=== PATIENT | male | born 1985 | race Caucasian/White ===

== ENCOUNTER 2017-07-21 14:28 | Inpatient (IN) ==
[2017-07-21] MEDS ORDERED: Aminoglycoside Consult 1 EACH MC ONE (16:25)
[2017-07-21] MEDS ORDERED: *HR* Promethazine 25 MG/ML VIAL IVP PRN (17:28)
[2017-07-21] MEDS ORDERED: *HR* LORazepam 2 MG/ML VIAL IVP PRN ×3 (17:28)
[2017-07-21] MEDS: Thiamine (B-1) 100 MG, Folic Acid 1 MG, MVI, adult with vitamin K 10 ML in 0.9 % Sodi... IVPB SCH (18:24)
[2017-07-21] MEDS ORDERED: Naloxone 0.4 MG/ML INJ IVP PRN (20:23)
[2017-07-21] MEDS: Acetaminophen 325 MG TABLET PO PRN (20:41)
[2017-07-21] MEDS: Nicotine 21 MG PATCH.TD24 TD SCH (20:41)
[2017-07-21] MEDS: 0.9 % Sodium Chloride 1,000 ML IVC SCH (20:41)
--- NOTE | 2017-07-21 20:48 | Internal Med History&Physical ---
<Trinh Rachel M - Last Filed: 07/21/17 20:42> Date of Encounter: 07/21/17 Time of Encounter: 20:42 Assessment and Plan (1) Alcohol withdrawal Current visit: Yes Status: Acute Patient reports he drinks 18 beers daily for at least 2 years, and stopped cold turkey on Wednesday. He reports he was "tired of being drunk all the time". He started having nausea, vomiting and abdominal pain last evening. He denies any seizures. [facility] protocol for alcohol withdrawal seizure and aspiration precautions social work consult Banana bag ordered plus IV fluids 0.9NS at 100mL/hr Qualifiers: Complication of substance-induced condition: uncomplicated Qualified Code(s ): F10.230 - Alcohol dependence with withdrawal, uncomplicated (2) Sepsis Current visit: Yes Status: Acute Patient with elevated WBC, fever of 102 and tachycardia with HR in the 90s. CXR showed no active pulmonary disease and UA was not definitive for infection. Patient was given Rocephin at [place]. Lactate was normal at 0.8. Given history of heavy alcohol use and recent vomiting, concern for aspiration pneumonia. Will broaden antibiotics to Vanc and Zosyn. Blood cultures, urine cultures and sputum cultures ordered Patient given 2L fluid boluses (30mL/kg = 2250) Tylenol PRN for fever. Qualifiers: Sepsis type: sepsis due to unspecified organism Qualified Code(s): A41.9 - Sepsis, unspecified organism (3) Nausea and vomiting Current visit: Yes Status: Acute Patient reports nausea, vomiting and abdominal pain since last night. Likely secondary to alcohol withdrawal as patient was a heavy drinker and stopped on Wednesday. Zofran PRN for nausea. IV fluids given: 2L in [place], continue with 0.9NS at 100mL/hr Qualifiers: Vomiting type: cyclical vomiting Vomiting Intractability: non-intractable Qualified Code(s): G43.A0 - Cyclical vomiting, not intractable (4) Smoker Current visit: Yes Status: Acute Patient reports he smokes and chews tobacco. encouraged smoking cessation. Nicotine patch and smoking cessation education ordered. (5) DVT prophylaxis Current visit: Yes Status: Acute Internal Medicine - H&P: HPI Chief complaint: chest pain Admitted From: Emergency Dept History of present illness: Mr. Barron is a 32 year old male with no significant medical history who presented to the emergency room at [facility] with nausea, vomiting, chills and sweats. Patient reports that he has been a heavy drinker, drinking 18 beers a day for several years and decided to quit on Wednesday. His symptoms of nausea, vomiting started last evening and worsened until today. Patient also reports chills, sweats, and body aches. He reports he has not had much urine output. He reports headache. He denies any lightheadedness, chest pain, palpitations, shortness of breath. Evaluation in the emergency room at [facility] revealed elevated white blood cell count of 23.0. UA was not definitive for infection. Lactate was normal at 0.8. Lipase is normal at 23. Chest x-ray showed no active pulmonary disease. On exam, patient alert and oriented, in no acute distress. Mildly tachycardic with heart rate in the 90s, he is febrile with temperature of 102. Heart has regular rate and rhythm, lungs are clear bilaterally to auscultation. Abdomen is soft, nontender, with positive bowel sounds, no peripheral edema. Past Med Surg Social Fam HX - Past Medical History Medical history: no medical history Psychiatric history: no psych history - Past Surgical History Surgical History: sinus surgery, other - Social History Smoking Status: Current every day smoker Packs per day: 1 Smokeless Tobacco Status: No Alcohol use: heavy Drug use: none - Family History Mother Living Status: Still Living Hx Family Cardiac Disorders: Yes Hx Family Endocrine Disorder: Yes (diabetes) Father Living Status: Still Living Hx Family Cardiac Disorders: Yes Internal Medicine - H&P: Meds No Known Home Drugs 07/21/17 [History] 3 Allergy/AdvReac Type Severity Reaction Status Date / Time No Known Allergies Allergy Verified 07/21/17 10:45 All Systems PM: A 10-system review of systems was performed and is negative for pertinent findings except as documented above in the HPI. - Constitutional Constitutional: chills, fever(s), malaise, no night sweats - EENT Eyes: no change in vision, no discharge, no pain, no photophobia Ears: no ear discharge, no ear pain, no tinnitus Nose, mouth and throat: no dysphagia, no nasal discharge, no neck pain, no sore throat - Cardiovascular Cardiovascular ROS IM: diaphoresis, no chest pain, no dyspnea, no lightheadedness, no palpitations, no syncope - Respiratory Respiratory: no cough, no dyspnea, no wheezing, no excessive phlegm production - Gastrointestinal Gastrointestinal: abdominal pain, nausea, vomiting, no diarrhea, no hematemesis , no hematochezia, no melena - Musculoskeletal Musculoskeletal ROS IM: no numbness, no tingling - Integumentary Integumentary IM: no rash, no unusual bruising - Neurological Neurological ROS: no confusion, no convulsions, no focal weakness, no numbness, no tingling, no tremor(s) - Hematologic/Lymphatic Hematologic/Lymphatic: no easy bruising - Constitutional Vitals: Temp Pulse Resp BP Pulse Ox 102.2 F H 95 14 117/71 95 07/21/17 19:34 07/21/17 19:34 07/21/17 19:34 07/21/17 19:34 07/21/17 19:34 General appearance: Present: A&O X 3, pleasant, no acute distress - Head Head exam: Present: atraumatic, normocephalic - Eye Eye exam: Present: PERRL, conjuntiva pink, sclera anicteric Pupils: Present: PERRL - Neck Neck exam general surgery: Present: supple, trachea midline. Absent: lymphadenopathy - Respiratory Respiratory exam: Present: CTAB. Absent: accessory muscle use, rales, rhonchi, wheezes - Cardiovascular Cardiovascular exam: Present: RRR, +S1, +S2. Absent: diastolic murmur, gallop, rubs, systolic murmur - GI/Abdominal GI/Abdominal exam: Present: normal bowel sounds, soft, no peritoneal signs. Absent: distended, tenderness - Extremities Exam Extremities exam: Present: warm, radial pulses palpable and symmetrical. Absent : calf tenderness, cyanotic, pedal edema - Neurological Exam Neurological exam: Present: CN II-XII intact, oriented X3, no focal deficits. Absent: pronater drift, facial droop, speech deficit - Skin Skin exam: Present: dry, intact Internal Med - H&P Results - Labs Labs: Labs from [facility]: WBC 23.0 Hgb 16.8 Hct 49.5 Plt 191 Na 136 K 3.8 Cl 102 Co2 26 BUN 7 Cr 0.98 Glu 113 Lactate 0.8 Lipase 23 <rAely Pascual - Last Filed: 07/22/17 04:44> Date of Encounter: 07/21/17 Time of Encounter: 21:45 Internal Medicine - H&P: HPI History of present illness: Mr. Barron is a 32 year old male All Systems PM: A 10-system review of systems was performed and is negative for pertinent findings except as documented above in the HPI. - Constitutional Vitals: Temp Pulse Resp BP Pulse Ox 99.3 F 84 14 130/87 99 07/22/17 03:30 07/22/17 03:30 07/22/17 03:30 07/22/17 03:30 07/22/17 03:30 - Attending Attestation Patient independently seen and examined. Transferred from [place] ER for management of alcohol withdrawal and sepsis. concern for aspiration PNA given history of vomiting and alcohol abuse. Will continue empiric IV abx, de- escalate abx therapy as per clinical response. continue IV fluids, CIWA protocol , ativan prn. Case discussed with JOSE ELIAS Rachel, I agree with her documented findings, assessment, and plan.
[2017-07-21] MEDS: Vancomycin 1,250 MG in D5% in Water 250 ML IVPB SCH (20:55)
[2017-07-21] MEDS ORDERED: Vancomycin 1,250 MG in D5% in Water 250 ML IVPB SCH (21:00)
[2017-07-22] MEDS: Piperacillin/Tazobactam 3.375 GM in D5% in Water (Mini-Bag+) 100 ML IVPB SCH ×3 (00:32→16:57)
[2017-07-22] MEDS: Acetaminophen 325 MG TABLET PO PRN ×2 (03:46→16:48)
[2017-07-22 05:26] LABS: Basophils # 0.1 K/mcL (0.0-0.2); Basophils % 0.5 %; Eosinophils # 0.1 K/mcL (0.0-0.6); Eosinophils % 0.8 %; Hematocrit 44.4 % (37.5-50.1); Hemoglobin 14.5 g/dL (12.9-16.9); Immature Granulocytes % 0.5 % (0-4); Mean Corpuscular HGB Conc 32.7 g/dL (31.6-35.5); Mean Corpuscular Hemoglobin 30.5 pg (28.0-33.3); Mean Corpuscular Volume 93.5 fL (83.0-100.0); Monocytes # 1.8 K/mcL (0.0-1.3); Monocytes % 12.3 %; Neutrophils # 11.6 K/mcL (1.6-8.9); Platelet Count 164 K/mcL (140-400); Red Blood Count 4.75 M/mcL (4.19-5.50); Segmented Neutrophils % 78.9 %
[2017-07-22 05:52] LABS: BUN/Creatinine Ratio 8 (6-26); Blood Urea Nitrogen 7 mg/dL (8-26); Calcium 8.4 mg/dL (8.6-10.8); Carbon Dioxide 21 mEq/L (19-29); Chloride 108 mEq/L (98-109); Glucose 110 mg/dL (70-99); Osmolality,Calculated 283 (280-300); Potassium 3.8 mEq/L (3.5-4.5); Sodium 137 mEq/L (136-145); eGFR For African Americans > 60 (> 60); eGFR For Non-African Americans > 60 (> 60)
[2017-07-22] MEDS: *HR* Enoxaparin 40 MG/0.4 ML SYRINGE SQ SCH (06:20)
[2017-07-22] MEDS: Vitamin B Complex/Vit C/Vit E 1 EACH TABLET PO SCH (08:49)
[2017-07-22] MEDS: Nicotine 21 MG PATCH.TD24 TD SCH (08:49)
[2017-07-22] MEDS: 0.9 % Sodium Chloride 1,000 ML IVC SCH ×2 (08:54→22:10)
[2017-07-22] MEDS: Vancomycin 1,250 MG in D5% in Water 250 ML IVPB SCH ×2 (09:06→22:07)
--- NOTE | 2017-07-22 10:14 | Internal Med Progress Note ---
Date of Encounter: 07/22/17 Time of Encounter: 09:50 - Assessment and plan (1) Alcohol withdrawal Status: Acute Assessment and plan: No delirium tremens. Not requiring IV Ativan so far. Continue CIWA protocol, aggressive IV hydration, monitor and replete electrolytes. Continue IV PPI. Supportive care with when necessary antiemetics. marketing services vice president consult. Telemetry monitoring. Thiamine and folate acid supplements. Qualifiers: Complication of substance-induced condition: uncomplicated Qualified Code(s ): F10.230 - Alcohol dependence with withdrawal, uncomplicated (2) Tobacco abuse Status: Chronic Assessment and plan: Continue nicotine transdermal patch. (3) SIRS (systemic inflammatory response syndrome) Status: Acute Assessment and plan: Patient has fever, tachycardia and leukocytosis, likely related to alcohol withdrawal. Follow-up blood and urine cultures and continue broad-spectrum IV antibiotics-vancomycin and Zosyn for now. (4) Nausea and vomiting Status: Resolved Assessment and plan: Improved emesis. Continue when necessary Zofran. Likely related to alcoholic gastritis. Qualifiers: Vomiting type: cyclical vomiting Vomiting Intractability: non-intractable Qualified Code(s): G43.A0 - Cyclical vomiting, not intractable (5) Neck pain Status: Acute Assessment and plan: Reports bilateral neck and right thoracic paraspinal pain and tenderness. Likely related to muscle spasms. Will use when necessary Flexeril and continue to monitor. - Subjective Interval history: Reports right upper abdominal pain and nausea; also has left and right neck pain along with right thoracic pain along his spine; feels miserable but tolerates diet; no nausea, vomiting; - Constitutional Vitals: Temp Pulse Resp BP Pulse Ox 98.7 F 71 20 126/83 98 07/22/17 08:41 07/22/17 08:41 07/22/17 08:41 07/22/17 08:41 07/22/17 08:41 General appearance: Present: mild distress, A&O X 3, answers questions appropriately - Neck Neck exam general surgery: Present: full ROM (restricted due to tenderness over left posterolateral neck and right lateral neck), tenderness, supple, trachea midline. Absent: lymphadenopathy Additional comments: no cervical vertebral tenderness - Respiratory Respiratory exam: Present: CTAB. Absent: accessory muscle use, rales, rhonchi, wheezes - Cardiovascular Cardiovascular exam: Present: RRR, +S1, +S2. Absent: diastolic murmur, gallop, rubs, systolic murmur - GI/Abdominal GI/Abdominal exam: Present: normal bowel sounds, soft (mild tenderness in RUQ, no guarding or rigidity), no peritoneal signs. Absent: distended, tenderness - Extremities Exam Extremities exam: Present: full ROM, warm, radial pulses palpable and symmetrical. Absent: calf tenderness, cyanotic, pedal edema - Neurological Exam Neurological exam: Present: CN II-XII intact, oriented X3, no focal deficits. Absent: pronater drift, facial droop, speech deficit - Skin Skin exam: Present: dry, intact Internal Medicine: Result - Labs CBC & Chem 7: 07/23/17 06:22 07/23/17 06:22 Labs: Short CBC 07/22/17 Range/Units 05:12 WBC 14.7 H (4.3-11.1) K/mcL Hgb 14.5 D (12.9-16.9) g/dL Hct 44.4 (37.5-50.1) % Plt Count 164 (140-400) K/mcL Neutrophils # 11.6 H (1.6-8.9) K/mcL BMP 07/22/17 05:12 Sodium 137 Potassium 3.8 Chloride 108 Carbon Dioxide 21 BUN 7 L Creatinine 0.83 Glucose 110 H Calcium 8.4 L Consult Discharge Plan - Plan Instructions: Alcohol Withdrawal (DC) Additional Instructions: F/up with PCP in 1-2 weeks Referrals: NONE,PCP [Primary Care Provider] - (family prefers to find and make the appointment themself. Thank you) Prescriptions: Chlordiazepoxide [Librium] 25 mg PO TID #6 capsule Cyclobenzaprine [Flexeril] 10 mg PO TID PRN #20 tablet PRN Reason: Spasms
[2017-07-22 10:19] LABS: Magnesium 1.5 mg/dL (1.6-2.6); Phosphorous 2.4 mg/dL (2.3-4.7)
[2017-07-22] MEDS ORDERED: Magnesium Sulfate 2 GM in D5% in Water 100 ML IVPB ONE (12:25)
[2017-07-22] MEDS: Thiamine (B-1) 100 MG, Folic Acid 1 MG, MVI, adult with vitamin K 10 ML in 0.9 % Sodi... IVPB SCH (18:33)
[2017-07-22] MEDS: Pantoprazole 40 MG VIAL IVP SCH (22:07)
[2017-07-23] MEDS: Piperacillin/Tazobactam 3.375 GM in D5% in Water (Mini-Bag+) 100 ML IVPB SCH ×2 (00:30→08:29)
[2017-07-23] MEDS: *HR* Enoxaparin 40 MG/0.4 ML SYRINGE SQ SCH (05:37)
[2017-07-23 06:31] LABS: Basophils # 0.1 K/mcL (0.0-0.2); Basophils % 0.5 %; Eosinophils # 0.2 K/mcL (0.0-0.6); Eosinophils % 1.2 %; Hematocrit 46.2 % (37.5-50.1); Hemoglobin 14.7 g/dL (12.9-16.9); Immature Granulocytes % 0.5 % (0-4); Lymphocytes # 1.3 K/mcL (0.6-4.6); Lymphocytes % 8.6 %; Mean Corpuscular HGB Conc 31.8 g/dL (31.6-35.5); Mean Corpuscular Hemoglobin 29.5 pg (28.0-33.3); Mean Corpuscular Volume 92.8 fL (83.0-100.0); Mean Platelet Volume 10.2 fL (9.4-12.4); Monocytes # 2.1 K/mcL (0.0-1.3); Monocytes % 14.6 %; Neutrophils # 10.9 K/mcL (1.6-8.9); Platelet Count 177 K/mcL (140-400); Red Blood Count 4.98 M/mcL (4.19-5.50); Segmented Neutrophils % 74.6 %
[2017-07-23 06:43] LABS: BUN/Creatinine Ratio 5 (6-26); Blood Urea Nitrogen 4 mg/dL (8-26); Calcium 9.1 mg/dL (8.6-10.8); Carbon Dioxide 23 mEq/L (19-29); Chloride 108 mEq/L (98-109); Glucose 114 mg/dL (70-99); Magnesium 1.7 mg/dL (1.6-2.6); Osmolality,Calculated 284 (280-300); Potassium 3.7 mEq/L (3.5-4.5); Sodium 138 mEq/L (136-145); eGFR For African Americans > 60 (> 60); eGFR For Non-African Americans > 60 (> 60)
[2017-07-23] MEDS: Acetaminophen 325 MG TABLET PO PRN (08:28)
[2017-07-23] MEDS: Vitamin B Complex/Vit C/Vit E 1 EACH TABLET PO SCH (08:30)
[2017-07-23] MEDS: Nicotine 21 MG PATCH.TD24 TD SCH (08:30)
[2017-07-23] MEDS: Pantoprazole 40 MG VIAL IVP SCH (08:30)
[2017-07-23] MEDS: Vancomycin 1,250 MG in D5% in Water 250 ML IVPB SCH (10:09)
[2017-07-23 10:48] VITALS: BP 126/81
--- NOTE | 2017-07-23 14:09 | Discharge Summary ---
Date of Encounter: 07/23/17 Time of Encounter: 13:30 - Discharge Diagnosis (1) Alcohol withdrawal Priority: Primary Status: Acute Qualifiers: Complication of substance-induced condition: uncomplicated Qualified Code(s ): F10.230 - Alcohol dependence with withdrawal, uncomplicated (2) Tobacco abuse Priority: Secondary Status: Chronic (3) SIRS (systemic inflammatory response syndrome) Priority: Primary Status: Acute (4) Nausea and vomiting Priority: Primary Status: Resolved Qualifiers: Vomiting type: cyclical vomiting Vomiting Intractability: non-intractable Qualified Code(s): G43.A0 - Cyclical vomiting, not intractable - Discharge Medications Prescriptions: Chlordiazepoxide [Librium] 25 mg PO TID #6 capsule Cyclobenzaprine [Flexeril] 10 mg PO TID PRN #20 tablet PRN Reason: Spasms Home Medications: Chlordiazepoxide [Librium] 25 mg PO TID #6 capsule 07/23/17 [Rx] Cyclobenzaprine [Flexeril] 10 mg PO TID PRN #20 tablet 07/23/17 [Rx] Allergies/Adverse Reactions: 3 Allergy/AdvReac Type Severity Reaction Status Date / Time No Known Allergies Allergy Verified 07/21/17 10:45 Procedures/tests Complete & Pending: Procedures Performed prior 72 hours Category Date Time Status ECG 12 lead ECG [ECG] Routine Y 07/22/17 07:02 Completed Date of admission: 07/21/17 20:57 Primary care physician: PCP NONE Consults: 07/21/17 17:28 Consult to Vacuum Evaporation Operator [CONS] Routine Reason for SW Consult: alcoholic with withdrawal Discharging clinician: Brandee Lopez Anticipated date of discharge: 07/23/17 - Patient Status Disposition: Home, Self-Care Condition: Fair Functional capacity at discharge: independent ambulation Overall status at discharge: patient is progressing back to baseline - Discharge Instructions Instructions: Alcohol Withdrawal (DC) Follow Up With: NONE,PCP [Primary Care Provider] - (family prefers to find and make the appointment themself. Thank you) Forms: Work/School Release Additional Instructions: F/up with PCP in 1-2 weeks - Diet and Activity Activity: resume usual activities as tolerated Diet: advance to your usual diet Hospital course: Mr. Barron is a 32 year old male with h/o- tobacco and alcohol abuse, presents with c/o- abdominal pain, nausea and vomiting after quitting alcohol completely a few days ago. He was noted to be in mild alcohol withdrawal along with alcoholic gastritis. He was started on aggressive IV hydration, PPI, CIWA protocol. Electrolytes were closely monitored and supplemented as needed. Patient was noted to have sirs criteria at admission, which is most likely due to alcohol withdrawal, no evidence of sepsis. Blood And urine cultures remained negative. Patient initially had bilateral neck and thoracic paraspinal pain and tenderness, which is likely due to muscle spasm as it responded well to when necessary Flexeril. Patient is medically and hemodynamically stable today and he is anxious to be discharged as he has certain bills to pay. He is encouraged to stay motivated and not relapse and follow up with his primary care provider and he verbalized understanding. - Time Spent with Patient Total time spent providing and/or coordinating discharge services: Greater than 30 minutes (40 min) - Constitutional Vitals: Temp Pulse Resp BP Pulse Ox 98.1 F 61 15 126/81 96 07/23/17 10:44 07/23/17 10:44 07/23/17 10:44 07/23/17 10:44 07/23/17 10:44 General appearance: Present: A&O X 3, answers questions appropriately - Respiratory Respiratory exam: Present: CTAB. Absent: accessory muscle use, rales, rhonchi, wheezes - Cardiovascular Cardiovascular exam: Present: RRR, +S1, +S2. Absent: diastolic murmur, gallop, rubs, systolic murmur - VTE Documentation of Mechanical Device: Graduated compression elastic hosiery
--- NOTE | 2017-07-26 08:35 | Electrocardiograph Report ---
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
== END 2017-07-23 16:26 | disposition home or self-care (01) | DRG 775 ==
LOC: 3ANU → SUATTDRO 20:57
PROVIDERS: ADMIT Family Medicine; ATTEND Internal Medicine